=== PATIENT | male | born 1965 | race Hispanic/Latino ===

== ENCOUNTER 2017-03-14 15:40 | Emergency (ER) | payer SELFPAY ==
[2017-03-14 16:13] VITALS: TEMP 98.2
[2017-03-14 16:50] VITALS: BMI 27.8
[2017-03-14 17:18] LABS: ADD MANUAL DIFF? NO
[2017-03-14 17:31] LABS: BASO # 0.03 K/mm3 (0.0-2.0); BASO % 0.6 % (0.0-3.0); EOS # 0.1 (0.0-0.7); EOS % 0.9 % (1.5-5.0); GRAN # 3.32 (1.4-6.5); GRAN % 62.5 % (50.0-68.0); HEMATOCRIT 48.9 % (42.0-52.0); LYMPH # 1.7 (1.2-3.4); LYMPH % 31.3 % (22.0-35.0); MEAN CELL VOLUME 93.7 fL (80.0-105.0); MEAN CORPUSCULAR HEMOGLOBIN 33.5 pg (25.0-35.0); MEAN CORPUSCULAR HGB CONC 35.8 g/dl (31.0-37.0); MEAN PLATELET VOLUME 8.6 fl (7.0-11.0); MONO # 0.3 (0.1-0.6); MONO % 4.7 % (1.0-6.0); PLATELET COUNT 226 10^3/uL (120.0-450.0); RED CELL DISTRIBUTION WIDTH 13.1 % (11.5-14.5); WHITE BLOOD COUNT 5.3 10^3/ul (4.5-11.0)
[2017-03-14 17:36] LABS: ALB/GLOB RATIO 1.7 (1.1-1.8); ALKALINE PHOSPHATASE 57 U/L (38-133); ALT/SGPT 29 U/L (7-56); AST/SGOT 28 U/L (15-59); BILIRUBIN,TOTAL 0.9 mg/dL (0.2-1.3); BLOOD UREA NITROGEN 10 mg/dL (7-21); CALCIUM 8.5 mg/dL (8.4-10.5); CARBON DIOXIDE 24 mmol/L (21-33); CHLORIDE 110 mmol/L (98-107); GFR AFRICAN-AMERICAN > 60; GLUCOSE,RANDOM 115 mg/dL (70-110); POTASSIUM 3.8 mmol/L (3.6-5.0); SODIUM 149 mmol/L (132-148); TOTAL PROTEIN 7.8 g/dL (5.8-8.3)
[2017-03-14 18:07] LABS: URINE BILIRUBIN NEGATIVE (NEGATIVE); URINE BLOOD MODERATE (NEGATIVE); URINE GLUCOSE (UA) NEGATIVE (NEGATIVE); URINE KETONE NEGATIVE (NEGATIVE); URINE LEUKOCYTE ESTERASE NEGATIVE Leu/uL (NEGATIVE); URINE PROTEIN TRACE mg/dL (<30 mg/dL); URINE UROBILINOGEN 0.2 E.U./dL (<1 E.U./dL)
[2017-03-14 18:14] LABS: URINE APPEARANCE CLEAR (CLEAR); URINE COLOR STRAW (YELLOW)
[2017-03-14 18:31] LABS: URINE BACTERIA FEW (NEG); URINE EPITHELIAL CELLS 0 - 2 /hpf (0-5); URINE RBC 0 - 2 /hpf (0-2)
[2017-03-14 19:13] VITALS: RESP 16
--- NOTE | 2017-03-14 20:08 | ED PDOC ---
Arrival/HPI - General Historian: Patient <Shelbi Priest - Last Filed: 03/15/17 01:18> <Mark Mckeon - Last Filed: 03/16/17 14:20> - General Chief Complaint: Alcohol Ingestion Time Seen by Provider: 03/14/17 16:53 - History of Present Illness Narrative History of Present Illness (Text): 03/14/17 20:09 51yr old male presents today with alcohol intoxication. pt states his name is Jerry, unable to obtain last name at present time. admits to drinking alcohol. denies any complaints. (Shelbi Priest) Past Medical History - Provider Review Nursing Documentation Reviewed: Yes - Travel History Have you recently traveled outside [place] w/in the past 3 mons?: No - Tetanus Immunization Tetanus Immunization: Unknown - Psychiatric Hx Substance Use: No <Shelbi Priest - Last Filed: 03/15/17 01:18> Family/Social History - Physician Review Nursing Documentation Reviewed: Yes Family/Social History: Unknown Family HX Smoking Status: Unknown If Ever Smoked Hx Alcohol Use: Yes Hx Substance Use: No <Shelbi Priest - Last Filed: 03/15/17 01:18> Allergies/Home Meds <Shelbi Priest - Last Filed: 03/15/17 01:18> <Mark Mckeon - Last Filed: 03/16/17 14:20> Allergies/Adverse Reactions: Allergies No Known Allergies Allergy (Verified 03/14/17 19:24) Home Medications: Home Meds Medication Instructions Recorded Confirmed Atenolol [Tenormin] 50 mg PO DAILY 03/14/17 03/14/17 Review of Systems - Review of Systems Systems not reviewed;Unavailable: Intoxicated Respiratory: absent: Cough Cardiovascular: absent: Chest Pain Gastrointestinal: absent: Abdominal Pain, Vomiting Musculoskeletal: absent: Arthralgias <Shelbi Priest - Last Filed: 03/15/17 01:18> Physical Exam Vital Signs Reviewed: Yes Temperature: Afebrile Blood Pressure: Hypertensive Pulse: Regular Respiratory Rate: Normal Appearance: Positive for: Well-Appearing, Non-Toxic, Comfortable Pain Distress: None Mental Status: Positive for: Alert and Oriented X 3 - Systems Exam Head: Present: Abrasion (abrasion noted to forehead) Pupils: Present: PERRL Extroacular Muscles: Present: EOMI Conjunctiva: Present: Normal Mouth: Present: Moist Mucous Membranes Neck: Present: Normal Range of Motion Respiratory/Chest: Present: Clear to Auscultation Cardiovascular: Present: Regular Rate and Rhythm Abdomen: No: Tenderness, Distention, Rebound, Guarding Upper Extremity: Present: Normal Inspection, Normal ROM Lower Extremity: Present: Normal Inspection, Normal ROM Neurological: Present: GCS=15 Skin: Present: Warm, Dry, Normal Color. No: Rashes Psychiatric: Present: Alert, Intoxicated <Shelbi Priest - Last Filed: 03/15/17 01:18> Medical Decision Making <Shelbi Priest - Last Filed: 03/15/17 01:18> <Mark Mckeon - Last Filed: 03/16/17 14:20> ED Course and Treatment: 03/14/17 20:11 Patient is nontoxic well-appearing in no distress vital signs are stable. CBC WNL CMP NA: 149, glucose; 115 Tylenol WNL Salicylate WNL Alcohol level 435 Urine drug screen wnl UA; wnl cxr: wnl ekg PT refusing EKG. pt refused CT of the head; pt refused CXR; pt continues to call looking for patient; i advised him that she has called ; he has tried to call her back without any answer. pt reassessment; pt more alert; more cooperative; states he doesn't want CT of the head because he believes that the hospital just wants money. pt states that his head is fine. pt seen and evaluated by PES screener;dayne pt c/o hx of depression; states his just left him yesterday and he was drinking a lot today. pt cleared psychiatrically for discharge. will continue to observe patient. 03/15/17 00:57 pt reassessment; pt alert and oriented; still refusing CT of Head. denies any complaints; denies headache/dizziness, weakness. wants to go home. pt now refusing tetanus shot; he is unsure of last tetanus shot; discussed in depth the important of tetanus vaccine; pt refused again. case signed out to dr. mckeon pending sobriety. Impression; alcohol abuse, head injury Follow up with the primary care physician within the next 2 days. Followup with behavioral health center increase fluids return if symptoms worsen,persist or if new symptoms develop. (Shelbi Priest) 03/15/17 05:27 Patient is sober, alert and oriented X3. Patient is ambulatory in the emergency department with steady gait. Patient was offered CT of head, but is still refusing. States he understands the risks of refusing CT and wishes to be discharged home. Patient is stable for discharge.Will sign for CT Head refusal. Advised to follow up with PMD within 2 days and present to emergency department for new/ worsening symptoms. (Mark Mckeon) - Lab Interpretations Lab Results: 03/14/17 17:00 03/14/17 17:00 Lab Results 03/14/17 17:40: Urine Opiates Screen Negative, Urine Methadone Screen Negative, Ur Barbiturates Screen Negative, Ur Phencyclidine Scrn Negative, Ur Amphetamines Screen Negative, U Benzodiazepines Scrn Negative, U Oth Cocaine Metabols Negative, U Cannabinoids Screen Positive H 03/14/17 17:40: Urine Color Straw, Urine Appearance Clear, Urine pH 6.0, Ur Specific [place] 1.010, Urine Protein Trace H, Urine Glucose (UA) Negative, Urine Ketones Negative, Urine Blood Moderate H, Urine Nitrate Negative, Urine Bilirubin Negative, Urine Urobilinogen 0.2, Ur Leukocyte Esterase Negative, Urine RBC 0 - 2, Urine WBC 1 - 3, Ur Epithelial Cells 0 - 2, Urine Bacteria Few 03/14/17 17:00: WBC 5.3, RBC 5.22, Hgb 17.5, Hct 48.9, MCV 93.7, MCH 33.5, MCHC 35.8, RDW 13.1, Plt Count 226, MPV 8.6, Gran % 62.5, Lymph % (Auto) 31.3, [place] % (Auto) 4.7, Eos % (Auto) 0.9 L, Baso % (Auto) 0.6, Gran # 3.32, Lymph # 1.7, [place] # 0.3, Eos # 0.1, Baso # 0.03 03/14/17 17:00: Alcohol, Quantitative 435 H* 03/14/17 17:00: Salicylates < 1 L, Acetaminophen < 10.0 L 03/14/17 17:00: Sodium 149 H, Potassium 3.8, Chloride 110 H, Carbon Dioxide 24, Anion Gap 19, BUN 10, Creatinine 1.0, Est GFR ( Amer) > 60, Est GFR (Non- Af Amer) > 60, Random Glucose 115 H, Calcium 8.5, Total Bilirubin 0.9, AST 28, ALT 29, Alkaline Phosphatase 57, Total Protein 7.8, Albumin 4.9 H, Globulin 2.9 , Albumin/Globulin Ratio 1.7 Disposition/Present on Arrival - Present on Arrival Any Indicators Present on Arrival: No History of DVT/PE: No History of Uncontrolled Diabetes: No Urinary Catheter: No History of Decub. Ulcer: No History Surgical Site Infection Following: None - Disposition Have Diagnosis and Disposition been Completed?: Yes Patient Plan: Discharge <Shelbi Priest - Last Filed: 03/15/17 01:18> - Present on Arrival Any Indicators Present on Arrival: No - Disposition Have Diagnosis and Disposition been Completed?: Yes Disposition Time: 05:25 Patient Plan: Discharge <Mark Mckeon - Last Filed: 03/16/17 14:20> - Disposition Diagnosis: Alcohol abuse, Head injury Disposition: HOME/ ROUTINE Condition: STABLE Additional Instructions: Follow up with the primary care physician within the next 2 days. Followup with behavioral health center increase fluids return if symptoms worsen,persist or if new symptoms develop. Referrals: PCP,NO [Non-Staff] - Follow up with primary
[2017-03-14 22:54] VITALS: BP 154/99; PULSE 94; O2SAT 96
== END 2017-03-15 07:39 | disposition home or self-care (01) ==
LOC: EDBD 15:40 → ED 15:40
DX: S09.90XA Unspecified injury of head, initial encounter (principal); X58.XXXA Exposure to other specified factors, initial encounter; Y93.89 Activity, other specified; Y92.89 Other specified places as the place of occurrence of the external cause; F10.10 Alcohol abuse, uncomplicated; Y90.8 Blood alcohol level of 240 mg/100 ml or more
CPT/HCPCS: 80053; 81001; 85025; 90791; 99283; G0480